=== PATIENT | male | born 1970 | race Caucasian/White ===

== ENCOUNTER 2022-05-14 20:25 | Emergency (ER) | payer MEDICAID ==
[~2022-05-14] VITALS: Ht 182.9 cm; Wt 93.2 kg
[2022-05-14] MEDS ORDERED: AMPH5CAP PO (21:04)
[2022-05-14 23:50] LABS: BASOPHILS % (AUTO) 0.9 % (0.0-2.0); EOSINOPHILS % (AUTO) 2.9 % (1.0-6.0); HEMATOCRIT 42.5 % (41-53); HEMOGLOBIN 14.3 g/dL (13.5-17.5); LYMPHOCYTES # (AUTO) 2.8 K/uL (1.0-4.8); LYMPHOCYTES % (AUTO) 33.1 % (22.0-44.0); MEAN CORPUSCULAR HEMOGLOBIN 27.9 pg (26.0-34.0); MEAN CORPUSCULAR HGB CONC 33.7 G/dL (31.0-37.0); MEAN CORPUSCULAR VOLUME 83 fL (80-100); MONOCYTES # (AUTO) 0.7 K/uL (0.1-1.0); MONOCYTES % (AUTO) 7.8 % (2.0-9.0); NEUTROPHILS # (AUTO) 4.7 K/uL (1.8-7.7); NEUTROPHILS % (AUTO) 55.3 % (40.0-70.0); PLATELET COUNT (AUTO) 286 K/uL (150-450); RED BLOOD CELL COUNT(AUTO) 5.14 MIL/uL (4.50-5.90); RED CELL DISTRIBUTION WIDTH 13.7 % (11.5-14.5)
[2022-05-15 00:26] LABS: ANION GAP 5 mmol/L (8-16); CARBON DIOXIDE 30 mmol/L (22-29); CHLORIDE 107 mmol/L (98-107); CREATININE 1.22 mg/dL (0.60-1.30); GLUCOSE,RANDOM 103 mg/dL (70-110); POTASSIUM 4.3 mmol/L (3.5-5.1); SODIUM SERUM 142 mmol/L (136-145); UREA NITROGEN, BLOOD 22 mg/dL (7-18)
[2022-05-15 00:31] LABS: GLOMERULAR FILTR. RATE CALC > 60 mL/min (>60)
[2022-05-15 00:37] LABS: THYROID STIMULATING HORMONE 2.93 uIU/mL (0.36-3.74)
[2022-05-15 00:47] VITALS: BP 134/86
[2022-05-15] MEDS ORDERED: ASPI-1450 PO (00:48)
== END 2022-05-15 00:55 | disposition home or self-care (01) ==
LOC: EMS 20:29
DX: R00.0 Tachycardia, unspecified (principal); Z79.899 Other long term (current) drug therapy
CPT/HCPCS: 71045; 80048; 83735; 84443; 84484; 85025; 93005; 99285; 36415-L1; 36415-TC